=== PATIENT | male | born 1955 | race Caucasian/White ===

== ENCOUNTER 2018-04-07 15:17 | Inpatient (IN) | payer OTHER ==
[~2018-04-07] VITALS: Ht 172.7 cm; Wt 91.9 kg
[2018-04-07] MEDS ORDERED: MORPHINE SULFATE 2 MG/1 ML DISP.SYRIN IV ONE (15:30)
[2018-04-07] MEDS ORDERED: ONDANSETRON 4 MG/2 ML VIAL IV ONE (15:30)
[2018-04-07] MEDS ORDERED: MORPHINE SULFATE 4 MG/1 ML DISP.SYRIN ONE (15:31)
[2018-04-07] MEDS ORDERED: ONDANSETRON 4 MG/2 ML VIAL ONE (15:32)
[2018-04-07 15:45] LABS: BASOPHILS # (AUTO) 0.1 K/uL (0.0-8.0); BASOPHILS % (AUTO) 0.6 % (0.0-2.0); EOSINOPHILS # (AUTO) 0.2 K/uL (0.0-0.7); EOSINOPHILS % (AUTO) 2.2 % (0.0-7.0); HEMATOCRIT 47.2 % (36.7-47.1); HEMOGLOBIN 15.4 g/dL (12.5-16.3); LYMPHOCYTES # (AUTO) 2.1 K/uL (20.0-40.0); LYMPHOCYTES % (AUTO) 20.1 % (20.5-51.5); MEAN CORPUSCULAR HEMOGLOBIN 27.3 uug (23.8-33.4); MEAN CORPUSCULAR HGB CONC 33 g/dL (32.5-36.3); MEAN CORPUSCULAR VOLUME 83.9 fL (73.0-96.2); MONOCYTES # (AUTO) 0.8 K/uL (2.0-10.0); MONOCYTES % (AUTO) 7.8 % (0.0-11.0); NEUTROPHILS # (AUTO) 7.2 K/uL (1.8-8.9); NEUTROPHILS % (AUTO) 69.3 % (38.5-71.5); PLATELET COUNT (AUTO) 197 K/uL (152-348); RED BLOOD CELL COUNT(AUTO) 5.63 MIL/uL (4.06-5.63); WHITE BLOOD COUNT (AUTO) 10.4 K/uL (3.6-10.2)
[2018-04-07 15:51] LABS: CREATININE 0.9 mg/dL (0.6-1.3); POTASSIUM 3.9 mmol/L (3.5-5.1)
[2018-04-07 15:56] LABS: BILIRUBIN,DIRECT 0.1 mg/dL (0.0-0.2); BILIRUBIN,TOTAL 0.4 mg/dL (0.2-1.0); TOTAL PROTEIN, SERUM 6.7 g/dL (6.4-8.2)
[2018-04-07] MEDS ORDERED: ASPI81TA44 PO (16:08)
[2018-04-07] MEDS ORDERED: RIVA10TA PO (16:11)
[2018-04-07] MEDS ORDERED: [UNRECOGNIZED DRUG - OTHER] (16:11)
[2018-04-07] MEDS ORDERED: ALBU1.25 IH (16:11)
[2018-04-07] MEDS ORDERED: ATOR80TA PO (16:11)
[2018-04-07] MEDS ORDERED: AMLO5TAB9 PO (16:11)
[2018-04-07] MEDS ORDERED: CARV12.5 PO (16:11)
--- NOTE | 2018-04-07 17:27 | NUR ---
GARY FROM [facility] CALLED BACK NAD SAID MOST PROBABLY THE PT WILL BE STAYING HERE AT [place], BUT SHE WILL CALL BACK IF CONFIRMED
--- NOTE | 2018-04-07 18:30 | NUR ---
MATT CONFIRMED THE PT BEINGADMITTED HERE AT [place].PT AWARE.
--- NOTE | 2018-04-07 18:40 | NUR ---
PT TRANSFERED TO FLOOR IN STABLE CONDITION.
[2018-04-07] MEDS ORDERED: MORPHINE SULFATE 2 MG/1 ML DISP.SYRIN IV PRN (18:45)
[2018-04-07] MEDS ORDERED: HYDROCODONE/APAP 5-325MG TABLET PO PRN (18:45)
[2018-04-07] MEDS ORDERED: ACETAMINOPHEN 325 MG TABLET PO PRN (18:45)
[2018-04-07] MEDS ORDERED: MAGNESIUM HYDROXIDE 30 ML LIQUID UDC PO PRN (18:45)
[2018-04-07] MEDS ORDERED: ZOLPIDEM 5 MG TABLET PO PRN (18:45)
[2018-04-07] MEDS ORDERED: ALBUTEROL SULFATE 1.25 MG/3 ML NEBU IH PRN (18:45)
[2018-04-07] MEDS ORDERED: ONDANSETRON 4 MG/2 ML VIAL IV PRN (18:45)
--- NOTE | 2018-04-07 18:55 | NUR ---
ADMITTED PATIENT FROM OUT PATIENT CLINIC STATUS POST THYROID BIOPSY VIA ER ,COMPLAINING OF CHEST PAIN, NO S/S PAIN OF PAIN , NO SOB NOTED, VITAL SIGNS TAKEN UPON ARRIVAL ON THE FLOOR, REPORT GIVEN TO [facility]ITY OUTREACH SPECIALIST. NORMAL SINUS RHYTHM ON MONITOR.
[2018-04-07 19:19] VITALS: BP 113/81
--- NOTE | 2018-04-07 19:20 | NUR ---
Admitted a 62 years old male with diagnosis of chest pain. Patient AAOX4. In no acute distress. Complained of generalized pain. Will provide Morphine 4mg per order. NSR on tele with frequent PVC's at 68/min. IV site on left AC intact and patent. Routine admission care done. Plan of care initiated. Safety measure initiated and call mcqueen within reach.
[2018-04-07 19:30] VITALS: BP 111/68
[2018-04-07] MEDS ORDERED: ALBUTEROL SULFATE 2.5 MG/ 0.5 ML NEBU NEB PRN (19:30)
[2018-04-07] MEDS: MORPHINE SULFATE 4 MG/1 ML DISP.SYRIN IV PRN (20:18)
[2018-04-07] MEDS: ASPIRIN EC 81 MG TABLET.DR PO SCH (20:49)
[2018-04-07] MEDS: NICOTINE 14 MG/24HR PATCH TD SCH (20:49)
[2018-04-07] MEDS: RIVAROXABAN 10 MG TABLET PO SCH (20:50)
[2018-04-07] MEDS: CARVEDILOL 12.5 MG TABLET PO SCH (20:51)
[2018-04-07] MEDS ORDERED: Medication Not On Formulary EA (Atorvastatin Calcium (Lipitor) 80 MG) PO SCH (21:00)
[2018-04-07] MEDS ORDERED: ATORVASTATIN 40 MG TABLET PO SCH (21:00)
[2018-04-07 23:48] VITALS: BP 99/63
[2018-04-08 03:31] VITALS: BP 93/57
[2018-04-08] MEDS: MORPHINE SULFATE 4 MG/1 ML DISP.SYRIN IV PRN ×2 (03:44→08:59)
--- NOTE | 2018-04-08 06:11 | NUR ---
AAOX4. In no acute distress. Morphine 4mg IV PRN per order given for complain of gen. pain and effective. Denies any chest pain. NSR on tele with occasional PVC's at 66/min. IV site on left AC intact and patent. Needs attended to and met. Safety measure maintained and call mcqueen within reach.
[2018-04-08 06:41] LABS: BASOPHILS % (AUTO) 0.5 % (0.0-2.0); EOSINOPHILS # (AUTO) 0.2 K/uL (0.0-0.7); EOSINOPHILS % (AUTO) 2.3 % (0.0-7.0); HEMATOCRIT 45.1 % (36.7-47.1); HEMOGLOBIN 14.7 g/dL (12.5-16.3); LYMPHOCYTES # (AUTO) 1.8 K/uL (20.0-40.0); MEAN CORPUSCULAR HEMOGLOBIN 27.7 uug (23.8-33.4); MEAN CORPUSCULAR HGB CONC 33 g/dL (32.5-36.3); MEAN CORPUSCULAR VOLUME 84.6 fL (73.0-96.2); MONOCYTES # (AUTO) 0.7 K/uL (2.0-10.0); MONOCYTES % (AUTO) 8.2 % (0.0-11.0); NEUTROPHILS # (AUTO) 5.9 K/uL (1.8-8.9); PLATELET COUNT (AUTO) 169 K/uL (152-348); RED BLOOD CELL COUNT(AUTO) 5.33 MIL/uL (4.06-5.63); WHITE BLOOD COUNT (AUTO) 8.7 K/uL (3.6-10.2)
[2018-04-08 06:59] LABS: BILIRUBIN,TOTAL 0.6 mg/dL (0.2-1.0); CREATININE 0.8 mg/dL (0.6-1.3); MAGNESIUM 1.9 mg/dL (1.8-2.4); PHOSPHOROUS 4.1 mg/dL (2.5-4.9); POTASSIUM 4.2 mmol/L (3.5-5.1); TOTAL PROTEIN, SERUM 6.1 g/dL (6.4-8.2)
[2018-04-08] MEDS: CARVEDILOL 12.5 MG TABLET PO SCH (08:55)
[2018-04-08] MEDS: ASPIRIN EC 81 MG TABLET.DR PO SCH (08:55)
[2018-04-08] MEDS: AMLODIPINE 5 MG TABLET PO SCH ×2 (08:55→09:00)
[2018-04-08] MEDS: NICOTINE 14 MG/24HR PATCH TD SCH (08:56)
[2018-04-08] MEDS: RIVAROXABAN 10 MG TABLET PO SCH (08:57)
[2018-04-08] MEDS ORDERED: ASPIRIN EC 81 MG TABLET.DR PO SCH (09:00)
[2018-04-08] MEDS ORDERED: RIVAROXABAN 10 MG TABLET PO SCH (09:00)
[2018-04-08 11:09] VITALS: BP 99/61
[2018-04-08 15:00] VITALS: BP 101/61
--- NOTE | 2018-04-08 18:26 | NUR ---
Patient was given discharge instruction, iv removed, and wristband removed. patient was provided transportation by his insurance company and did not wait for them to pick him up when he went outside on his own.
== END 2018-04-08 19:00 | disposition home or self-care (01) | DRG 198 ==
LOC: ER 15:17 → TELE 18:35 → MED 04-08 14:41
PROVIDERS: ADMIT Nurse Practitioner Acute Care; ATTEND Nurse Practitioner Acute Care
DX: I25.10 Atherosclerotic heart disease of native coronary artery without angina pectoris (principal); D68.51 Activated protein C resistance; Z68.30 Body mass index [BMI] 30.0-30.9, adult; E44.1 Mild protein-calorie malnutrition; D72.829 Elevated white blood cell count, unspecified; E78.5 Hyperlipidemia, unspecified; F17.210 Nicotine dependence, cigarettes, uncomplicated; I25.2 Old myocardial infarction; I10 Essential (primary) hypertension; J44.9 Chronic obstructive pulmonary disease, unspecified; Z95.5 Presence of coronary angioplasty implant and graft; E88.09 Other disorders of plasma-protein metabolism, not elsewhere classified; J45.909 Unspecified asthma, uncomplicated; Z79.01 Long term (current) use of anticoagulants; Z79.82 Long term (current) use of aspirin
CPT/HCPCS: 36415; 70030-TC; 71045; 83735; 84100; 85025; 93005; 93307; A4663; G0378; J2270; J2405; J7040